=== PATIENT | female | born 1980 | race African-American/Black ===

== ENCOUNTER 2016-05-15 09:41 | Emergency (ER) | payer MEDICAID, OTHER ==
[2016-05-15] MEDS ORDERED: KETOROLAC 60 MG/2 ML VIAL IM ONE (11:30)
== END 2016-05-15 14:29 | disposition home or self-care (01) ==
LOC: ER 09:41
CPT/HCPCS: 36415; 76830; 80053; 81001; 84703; 85025; 86901; 87491; 87591; 87800; 96372